=== PATIENT | male | born 1970 | race Caucasian/White ===

== ENCOUNTER 2022-04-20 15:00 | Outpatient (CLI) | payer OTHER, SELFPAY | END 2022-04-20 15:01 | disposition home or self-care (01) | LOC: SLEEP 04-21 15:53 | PROVIDERS: Family Provider Family Medicine; Visit Provider Family Medicine | DX: G47.33 Obstructive sleep apnea (adult) (pediatric) (principal) | CPT/HCPCS: G0399 ==

== ENCOUNTER → 2022-07-18 15:41 | Outpatient (BNVA) | payer OTHER, SELFPAY | PROVIDERS: Family Provider Family Medicine; PCP Family Medicine; Visit Provider Family Medicine | DX: R79.89 Other specified abnormal findings of blood chemistry (principal); Z51.81 Encounter for therapeutic drug level monitoring; Z79.890 Hormone replacement therapy | CPT/HCPCS: 80053; 83540; 84403; 86705; 86706; 86709; 86803; 87340 ==

== ENCOUNTER 2024-04-22 10:52 | Outpatient (CLI) | payer OTHER, SELFPAY ==
--- NOTE | 2024-04-22 10:56 | XR_ITS ---
WS: [id number] Chest 2 views, 04/22/2024 Clinical Data: right rib pain, 3 week cough Comparison: None. Findings: No nodules, masses or effusions are seen. There are mild bilateral patchy hilar opacities w hich could represent hilar pneumonia. The diaphragms are flattened. The heart is normal. The pulmonar y vascularity is not increased. No pneumonia or pneumothorax is seen. XR/XR chest 2V* [id number] Impression: 1. Minimal patchy bilateral hilar opacities which could indicate hilar pneumoni a. 2. Hyperinflation.
== END 2024-04-22 10:53 | disposition home or self-care (01) ==
LOC: RAD 10:53
PROVIDERS: Family Provider Family Medicine; PCP Family Medicine; Visit Provider Clinical Nurse Specialist Adult Health
DX: R07.81 Pleurodynia (principal); R05.8 Other specified cough
CPT/HCPCS: 71046

== ENCOUNTER 2024-05-16 09:43 | Outpatient (CLI) | payer OTHER, SELFPAY ==
--- NOTE | 2024-05-16 10:00 | CT_ITS ---
WS: [id number] CT chest wo con [id number] HISTORY: cough X 3 weeks, white phlegm, rib pain TECHNIQUE: Axial imaging performed through the thorax. Coronal and sagittal reformats are submitted. All CT scans at [facility] use at least one of these dose optimization techniques: automated exposure control; mA and/or kV adjustment per patient size (includes targeted exams where dose is mat ched to clinical indication); or iterative reconstruction. CONTRAST: None DLP: 468.57 mGy.cm COMPARISON: Chest radiograph 04/22/2024 Lungs and central airway: No pneumonia. No evidence for pneumonitis. There is no mass or lobar collap se. No endobronchial lesions. Pleura: Normal. No pleural effusion. Heart and pericardium: Normal size heart with no pericardial effusion. Mediastinum and collin: Small mediastinal and hilar lymph nodes. Vessels: Normal size aortic and pulmonary artery. No coronary artery calcifications. Chest wall and lower neck: No soft tissue masses. Upper abdomen: Small hiatal hernia. No adrenal mass. 1.7 cm low-attenuation mass in the superior RIGH T kidney is probably a cyst but incompletely included and evaluated on this exam. Osseous structures: No bone destruction. No osteoblastic or osteolytic bone disease. CT/CT chest wo con [id number] IMPRESSION: 1. No pneumonia. Lungs are clear. No adenopathy. 2. No pericardial or pleural effusions. 3. Incompletely visualized low-attenuation mass superior pole RIGHT kidney at 1.7 cm. This is probably a cyst. This can be further evaluated by ultrasound to confirm benign cyst.
== END 2024-05-16 09:44 | disposition home or self-care (01) ==
PROVIDERS: Family Provider Family Medicine; PCP Family Medicine; Visit Provider Clinical Nurse Specialist Adult Health
DX: R07.81 Pleurodynia (principal); R05.2 Subacute cough; D49.511 Neoplasm of unspecified behavior of right kidney; K44.9 Diaphragmatic hernia without obstruction or gangrene
CPT/HCPCS: 71250

== ENCOUNTER 2024-06-12 10:37 | Outpatient (CLI) | payer OTHER, SELFPAY ==
--- NOTE | 2024-06-12 10:45 | US_ITS ---
WS: [id number] RENAL ULTRASOUND HISTORY: right kidney mass COMPARISON: Chest CT 05/16/2024 TECHNIQUE: 2-D and color Doppler imaging of the kidney submitted. Right kidney: 10.7 cm x 5.1 cm x 4.4 cm. Cortex: 1.3 cm Normal size kidney. There is a cortical cyst in the mid to upper kidney measuring 2.2 x 1.9 x 2.0 cm. No solid mass or obstruction. Left kidney: 11.6 cm x 5.4 cm x 5.6 cm. Cortex: 1.5 cm Normal echogenicity with no hydronephrosis or mass. Aorta: Normal. Urinary Bladder: Normal distention. Mild prostate heterogeneity and enlargement. US/US renal BI* [id number] IMPRESSION: Previously described mass in the RIGHT kidney corresponds to a simple cyst. No solid mass. Cyst measures 2.2 x 1.9 x 2.0 cm.
== END 2024-06-12 10:38 | disposition home or self-care (01) ==
LOC: RAD 10:38
PROVIDERS: Family Provider Family Medicine; PCP Family Medicine; Visit Provider Clinical Nurse Specialist Adult Health
DX: N28.1 Cyst of kidney, acquired (principal); N28.89 Other specified disorders of kidney and ureter
CPT/HCPCS: 76770

== ENCOUNTER 2024-10-21 10:38 | Emergency (ER) | payer SELFPAY ==
[2024-10-21 10:42] VITALS: BP 135/70; PULSE 82; RESP 16; TEMP 36.7; O2SAT 97; BMI 29.5
--- NOTE | 2024-10-21 10:43 | ECG_ITS ---
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 Measurements Intervals [place] Rate: 89 P: 59 [place]: 136 QRS: 82 QRSD: 101 T: 47 QT: 330 QTc: 403 Interpretive Statements SINUS RHYTHM INCOMPLETE RIGHT BUNDLE BRANCH BLOCK [90+ ms QRS DURATION, TERMINAL R IN V1/V2, 40+ ms S IN I/aVL/V4/V5/V6] No previous ECG available for comparison Electronically Signed On 10-21-2024 17:04:33 WINTERIZER by Marilyn Winters M.D. [id number]
--- NOTE | 2024-10-21 11:19 | ED_ITS ---
HPI - Chest Pain 2 General: Chief Complaint: Chest Pain Stated Complaint: Cardiac issues Time Seen by Provider: 10/21/24 11:23 History of Present Illness: Patient is a 54-year-old male with history of hypertension, insomnia, ADHD, sleep apnea and anxiety. Patient states that he was vaping for a while. He states about 3 to 4 months ago he had an episode where when he would lay down he did have a tightness in the center of his chest and he feels like he was short of breath. He states that if he got up and moved around it went away but when he sat down again or laid back he can of felt this impending doom sensation. He states it lasted about 4 days and then went away. He never followed up. He did stop vaping around that time and then everything got better. He started vaping again about a month ago and started having the symptoms 4 days ago. He stopped vaping 2 days ago. He also states he has omeprazole which she took 1 of. He does not use it every day but just uses it whenever he has heartburn. He states the omeprazole did help. Patient takes Advil 3 times a day and states he has been doing that for 30 years. Patient states he does have some frequent heartburn. He also states that he has known sleep apnea and snores. His episodes during the night he usually wakes up from sleep having the sensations of gasping for air. Patient currently has no discomfort. He does have high anxiety over this issue. No lightheadedness, no nausea or vomiting. Associated symptoms: Deny abdominal pain or nausea Related Data Home Medications Medication Instructions Recorded Confirmed ibuprofen 200 mg tablet (Advil) 200 mg PO BID PRN Pain 10/21/24 10/21/24 tadalafil 5 mg tablet 8.5 mg PO DAILY PRN Sexual Activity 10/21/24 10/21/24 testosterone cypionate 200 mg/mL 250 mg SUBCUT .BYWEEKLY 10/21/24 10/21/24 intramuscular syringe Previous Rx's Medication Instructions Recorded Auto Titrating C-pap #1 ea 06/09/22 omeprazole 40 mg capsule,delayed 40 mg PO DAILY #90 caps 07/28/23 release hydrochlorothiazide 25 mg tablet 25 mg PO DAILY #30 tabs 12/13/23 dextroamphetamine-amphetamine ER 10 mg PO DAILY 1 month #30 caps 10/16/24 10 mg 24hr capsule,extend release (Adderall XR) clonazepam 1 mg tablet (Klonopin) 1 mg PO TID PRN Anxiety #12 tabs 10/21/24 sucralfate 1 gram tablet (Carafate) 1 g PO Q6H 2 weeks #56 tabs 10/21/24 Allergies Allergy/AdvReac Type Severity Reaction Status Date / Time duloxetine [From Cymbalta] Allergy Intermediate RASH Verified 10/21/24 10:52 gabapentin AdvReac ADR-Muscle Verified 10/21/24 10:52 Pain trazodone AdvReac ADR-Muscle Verified 10/21/24 10:52 Pain Review of Systems 2 ENMT: Denies: throat pain or nasal congestion Card: Denies: lightheadedness Resp: Denies: wheezing GI: Denies: abdominal pain or nausea : Denies: difficulty urinating or dysuria Musc: Denies: neck pain or extremity pain Neuro: Denies: weakness in extremities or sensory changes ENMT: Denies: throat pain or nasal congestion Card: Denies: lightheadedness Resp: Denies: wheezing GI: Denies: abdominal pain or nausea : Denies: difficulty urinating or dysuria Musc: Denies: neck pain or extremity pain Neuro: Denies: weakness in extremities or sensory changes PFSH ED 2 PFSH: Medical History Anxiety Hypertension Insomnia ADD (attention deficit disorder) Hypotestosteronemia Obstructive sleep apnea Social History Smoking and tobacco/nicotine status: unknown if used tobacco/nicotine Physical Exam 2 Const: COMMON NORMALS: no acute distress, patient oriented x3 and alert G ENERAL APPEARANCE: cooperative HENMT: COMMON NORMALS: normocephalic and atraumatic HEAD & SCALP: n ormocephalic and atraumatic Eye: COMMON NORMALS: Equal, round and reactive pupils present and EOMs intact bilaterally PUPIL: Yes Equal, round and reactive pupils present Neck/C-Spine: COMMON NORMALS: full ROM and supple Chest: COMMONS NORMALS: normal inspection of the chest Resp: COMMON NORMALS: normal respiratory effort and clear to auscultation bilaterally AUSCULTATION: clear to auscultation bilaterally Cardio: COMMON NORMALS: regular rate and regular rhythm RATE: regular rate RHYTHM: regular rhythm GI: COMMON NORMALS: Normal to inspection, nondistended, normoactive bowel sounds present and non-tender : COMMON NORMALS: Yes no CVA tenderness BLADDER/KIDNEY EXAM: Yes no CVA tenderness Back/Pelvis: COMMON NORMALS: no CVA tenderness and thoracic and lumbar spine normal to inspection Extremity: COMMON NORMALS: normal to inspection, full ROM and no pedal edema Neuro: COMMON NORMALS: patient oriented x3 and no focal motor deficits S ENSORIUM/ORIENTATION: Yes alert Psych: COMMON NORMALS: cooperative Skin: COMMON NORMALS: no rashes or lesions noted GENERAL SKIN EXAM: no rashes or lesions noted Course 2 Vital Signs: Vital signs: Vital Signs Temperature 98.1 F 10/21/24 10:42 Pulse Rate 66 10/21/24 12:28 Respiratory Rate 16 10/21/24 10:42 Blood Pressure 147/99 10/21/24 12:28 Pulse Oximetry 98 10/21/24 12:28 Oxygen Delivery Me thod Room Air 10/21/24 12:28 MDM - Chest Pain Medical Decision Making Patient workup negative. Initial troponin was 17 and 2-hour repeat was 11. Patient symptoms seem most consistent with anxiety. He states while he is up working and doing things in his mind does not thinking about his issues he feels fine and has no issues. He states once he sits down he starts thinking about having problems and then he starts feeling extremely anxious and has to get up and move around. He has symptoms mostly when he lays down at night. He wakes up gasping which sounds like sleep apnea which he has documented as having. He has not used CPAP in a long time. He also has these attacks where he breathes fast and his heart beats fast and he is tingling in his hands again consistent with anxiety. He states he is not sleeping at night but has documented insomnia. Do not see anything acute. Have advised to use omeprazole once daily instead of just as needed and will put him on Carafate. Will give him small course of Klonopin to use for this extreme anxiety. He does have appointment with his primary doctor in 3 days. Lab Data 10/21/24 11:44 10/21/24 11:44 Radiology Impressions Chest X-Ray 10/21/24 11:26 IMPRESSION: No evidence for an acute cardiopulmonary process. Laboratory Results WBC 8.57 10^3/uL (3.29-11.43) 10/21/24 11:44 RBC 5.47 10^6/uL (3.85-5.65) 10/21/24 11:44 Hgb 17.20 g/dL (11.27-16.99) H 10/21/24 11:44 Hct 49.5 % (37-53) 10/21/24 11:44 MCV 90.5 fl (82-101) 10/21/24 11:44 MCH 31.4 pg (27-33) 10/21/24 11:44 MCHC 34.7 g/dL (30-55) 10/21/24 11:44 RDW 12.4 % (12.1-15.1) 10/21/24 11:44 Plt Count 267 10^3/cmm (157-399) 10/21/24 11:44 MPV 9.3 fL (7.4-10.4) 10/21/24 11:44 Neut % (Auto) 78.0 % 10/21/24 11:44 Lymph % (Auto) 11.6 % 10/21/24 11:44 [place] % (Auto) 6.8 % 10/21/24 11:44 Eos % (Auto) 2.7 % 10/21/24 11:44 Baso % (Auto) 0.7 % 10/21/24 11:44 Neut # (Auto) 6.69 10^3/uL (1.8-7.7) 10/21/24 11:44 Lymph # (Auto) 1.0 10^3/uL (0.8-4.8) 10/21/24 11:44 [place] # (Auto) 0.6 10^3/uL (0.2-0.9) 10/21/24 11:44 Eos # (Auto) 0.2 10^3/uL (0.0-0.8) 10/21/24 11:44 Baso # (Auto) 0.1 10^3/uL (0.0-0.1) 10/21/24 11:44 Nucleated RBC % (auto) 0 % 10/21/24 11:44 Nucleated RBCs # 0.0 /100WBC 10/21/24 11:44 Sodium 135 mmol/L (136-145) L 10/21/24 11:44 Potassium 3.5 mmol/L (3.5-5.1) 10/21/24 11:44 Chloride 97 mmol/L (98-107) L 10/21/24 11:44 Carbon Dioxide 29 mmol/L (22-29) 10/21/24 11:44 Anion Gap 12.5 (5-19) 10/21/24 11:44 BUN 13 mg/dL (6-20) 10/21/24 11:44 Creatinine 1.0 mg/dL (0.7-1.2) 10/21/24 11:44 GFR Calculation 78.2 mL/min (90-130) L 10/21/24 11:44 Glucose 115 mg/dL (65-115) 10/21/24 11:44 Calculated Osmolality 281 mOsm/kg (285-295) L 10/21/24 11:44 Calcium 9.4 mg/dL (8.5-10.5) 10/21/24 11:44 Total Bilirubin 0.5 mg/dL (0.15-1.2) 10/21/24 11:44 AST 36 U/L (0-40) 10/21/24 11:44 ALT 34 U/L (0-41) 10/21/24 11:44 Alkaline Phosphatase 65 U/L (40-130) 10/21/24 11:44 Troponin T Baseline 17 ng/L (0-15) H 10/21/24 11:44 Troponin T 120 Minute 11.51 ng/L (0-15) 10/21/24 14:10 Delta Troponin T -5.49 ABS# (0-10) L 10/21/24 14:10 Total Protein 7.0 g/dL (6.6-8.7) 10/21/24 11:44 Albumin 4.4 g/dL (3.5-5.2) 10/21/24 11:44 Globulin 2.6 g/dL (1.3-4.6) 10/21/24 11:44 All radiology interpretation(s) finalized by discharge EKG Data EKG 1: Interpretation: Normal EKG, no ST elevations or depressions, no ectopic beats. Normal intervals Discharge Plan Discharge Patient Disposition: Home Clinical Impression: Peptic ulcer, Obstructive sleep apnea, Anxiety Condition: Stable Prescriptions: New clonazepam [Klonopin] 1 mg tablet 1 mg PO TID PRN (Reason: Anxiety) Qty: 12 0RF sucralfate [Carafate] 1 gram tablet 1 g PO Q6H 14 Days Qty: 56 0RF No Action hydrochlorothiazide 25 mg tablet 25 mg PO DAILY Qty: 30 11RF (DME) Auto Titrating C-pap See Rx Instructions .Route .MEDSUPPLY Qty: 1 1RF Rx Instructions: setting of 6-14. mask and supplies as needed omeprazole 40 mg capsule,delayed release(DR/EC) 40 mg PO DAILY Qty: 90 11RF dextroamphetamine-amphetamine [Adderall XR] 10 mg capsule,extended release 24hr 10 mg PO DAILY 30 Days Qty: 30 0RF ibuprofen [Advil] 200 mg Tablet 200 mg PO BID PRN (Reason: Pain) tadalafil 5 mg Tablet 8.5 mg PO DAILY PRN (Reason: Sexual Activity) Rx Instructions: administer approximately 30min before sexual activity; do not use more than 1 dose per 24hrs testosterone cypionate 200 mg/mL Syringe 250 mg SUBCUT .BYWEEKLY Discharge Orders: Discharge ED (Routine); Ordered 10/21/24 Ordered By: Bill Wheeler Referrals: Kiel Alvares MD [Primary Care Provider] - Discharge Diet: Usual diet Discharge Activity: Resume usual activity Patient Instructions: Diet for Stomach Ulcers and Gastritis (ED), Esophagitis (ED), Pain Management Activity Restrictions/Additional Instructions: Follow-up with your primary care physician as previously scheduled for October 24. Take all medications as prescribed. Make sure you are taking your omeprazole once daily until that time. Coding Level of Care Code ED Topographical Field Assistant for Soraya Jessica
--- NOTE | 2024-10-21 11:26 | XRR_ITS ---
PROCEDURE INFORMATION: Exam: XR Chest Exam date and time: 10/21/2024 11:31 AM Age: 54 years old Clinical indication: Pain; Angina pectoris; Additional info: Chest pain TECHNIQUE: Imaging protocol: Radiologic exam of the chest. Views: 1 view. COMPARISON: CT chest con [id number] 05/16/2024 10:07 AM FINDINGS: Tubes, catheters and devices: None. Lungs: The lungs appear clear. Pleural spaces: No pleural effusion. No pneumothorax. Heart/Mediastinum: Mediastinum and collin appear unremarkable. Bones/joints: No acute bony abnormality identified. XR/XR chest 1V portable [id number] IMPRESSION: No evidence for an acute cardiopulmonary process.
[2024-10-21 11:54] LABS: Basophils # 0.1 10^3/uL (0.0-0.1); Basophils % 0.7 %; Eosinophils # 0.2 10^3/uL (0.0-0.8); Eosinophils % 2.7 %; Hematocrit 49.5 % (37-53); Lymphocytes % 11.6 %; Mean Corpuscular HGB Conc 34.7 g/dL (30-55); Mean Corpuscular Hemoglobin 31.4 pg (27-33); Mean Corpuscular Volume 90.5 fl (82-101); Mean Platelet Volume 9.3 fL (7.4-10.4); Monocytes # 0.6 10^3/uL (0.2-0.9); Monocytes % 6.8 %; Neutrophils # 6.69 10^3/uL (1.8-7.7); Nucleated Red Blood Cells % 0 %; Platelet Count 267 10^3/cmm (157-399); Red Blood Count 5.47 10^6/uL (3.85-5.65); Red Cell Distribution Width 12.4 % (12.1-15.1); White Blood Count 8.57 10^3/uL (3.29-11.43)
[2024-10-21 12:13] LABS: Alanine Aminotransferase 34 U/L (0-41); Albumin Level 4.4 g/dL (3.5-5.2); Alkaline Phosphatase 65 U/L (40-130); Anion Gap 12.5 (5-19); Aspartate Amino Transferase 36 U/L (0-40); Blood Urea Nitrogen 13 mg/dL (6-20); Calcium 9.4 mg/dL (8.5-10.5); Carbon Dioxide 29 mmol/L (22-29); Chloride 97 mmol/L (98-107); Creatinine Clr Calc Pharmacy 95.1045; Globulin 2.6 g/dL (1.3-4.6); Glomerular Filtration Rate 78.2 mL/min (90-130); Glucose 115 mg/dL (65-115); Osmolality Calculated 281 mOsm/kg (285-295); Potassium 3.5 mmol/L (3.5-5.1); Sodium 135 mmol/L (136-145); Total Bilirubin 0.5 mg/dL (0.15-1.2)
[2024-10-21 12:14] LABS: Troponin(5th) Baseline 17 ng/L (0-15)
[2024-10-21 12:28] VITALS: BP 147/99; PULSE 66; O2SAT 98
--- NOTE | 2024-10-21 13:24 | ECG_ITS ---
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 Measurements Intervals [place] Rate: 63 P: 43 CO: 152 QRS: 58 QRSD: 106 T: 25 QT: 370 QTc: 381 Interpretive Statements SINUS RHYTHM INCOMPLETE RIGHT BUNDLE BRANCH BLOCK [90+ ms QRS DURATION, TERMINAL R IN V1/V2, 40+ ms S IN I/aVL/V4/V5/V6] Compared to ECG 10/21/2024 10:43:44 No significant changes Electronically Signed On 10-21-2024 17:16:37 TUB OPERATOR by Marilyn Winters M.D. [id number]
[2024-10-21 14:31] LABS: Troponin 5 2HR 11.51 ng/L (0-15)
[2024-10-21 14:32] LABS: Troponin 5 2HR Delta -5.49 ABS# (0-10)
--- NOTE | 2024-10-21 15:03 | ED_ITS ---
<Statement entered by Bill Wheeler MD - 10/21/24 16:54> The system somehow created a second note that it wants me to complete. I have a note that is signed and fully complete in the system dated 10/21/2024 with a time of 11:19 AM creation. Please refer to that note for information regarding visit. HPI - Chest Pain 2 General: Chief Complaint: Chest Pain Stated Complaint: Cardiac issues Time Seen by Provider: 10/21/24 11:23 History of Present Illness: This document was created by the system and is a duplicate. Please disregard Related Data Home Medications Medication Instructions Recorded Confirmed ibuprofen 200 mg tablet (Advil) 200 mg PO BID PRN Pain 10/21/24 10/21/24 tadalafil 5 mg tablet 8.5 mg PO DAILY PRN Sexual Activity 10/21/24 10/21/24 testosterone cypionate 200 mg/mL 250 mg SUBCUT .BYWEEKLY 10/21/24 10/21/24 intramuscular syringe Previous Rx's Medication Instructions Recorded Auto Titrating C-pap #1 ea 06/09/22 omeprazole 40 mg capsule,delayed 40 mg PO DAILY #90 caps 07/28/23 release hydrochlorothiazide 25 mg tablet 25 mg PO DAILY #30 tabs 12/13/23 dextroamphetamine-amphetamine ER 10 mg PO DAILY 1 month #30 caps 10/16/24 10 mg 24hr capsule,extend release (Adderall XR) clonazepam 1 mg tablet (Klonopin) 1 mg PO TID PRN Anxiety #12 tabs 10/21/24 sucralfate 1 gram tablet (Carafate) 1 g PO Q6H 2 weeks #56 tabs 10/21/24 Allergies Allergy/AdvReac Type Severity Reaction Status Date / Time duloxetine [From Cymbalta] Allergy Intermediate RASH Verified 10/21/24 10:52 gabapentin AdvReac ADR-Muscle Verified 10/21/24 10:52 Pain trazodone AdvReac ADR-Muscle Verified 10/21/24 10:52 Pain PFSH ED 2 PFSH: Medical History Anxiety Hypertension Insomnia ADD (attention deficit disorder) Hypotestosteronemia Obstructive sleep apnea Social History Smoking and tobacco/nicotine status: unknown if used tobacco/nicotine Course 2 Vital Signs: Vital signs: Vital Signs Temperature 98.1 F 10/21/24 10:42 Pulse Rate 70 10/21/24 15:44 Respiratory Rate 16 10/21/24 10:42 Blood Pressure 138/91 10/21/24 15:44 Pulse Oximetry 99 10/21/24 15:44 Oxygen Delivery Me thod Room Air 10/21/24 12:28 MDM - Chest Pain Medical Decision Making Duplicate document created by system and correctly. Please disregard Lab Data 10/21/24 11:44 10/21/24 11:44 Radiology Impressions Chest X-Ray 10/21/24 11:26 IMPRESSION: No evidence for an acute cardiopulmonary process. Laboratory Results WBC 8.57 10^3/uL (3.29-11.43) 10/21/24 11:44 RBC 5.47 10^6/uL (3.85-5.65) 10/21/24 11:44 Hgb 17.20 g/dL (11.27-16.99) H 10/21/24 11:44 Hct 49.5 % (37-53) 10/21/24 11:44 MCV 90.5 fl (82-101) 10/21/24 11:44 MCH 31.4 pg (27-33) 10/21/24 11:44 MCHC 34.7 g/dL (30-55) 10/21/24 11:44 RDW 12.4 % (12.1-15.1) 10/21/24 11:44 Plt Count 267 10^3/cmm (157-399) 10/21/24 11:44 MPV 9.3 fL (7.4-10.4) 10/21/24 11:44 Neut % (Auto) 78.0 % 10/21/24 11:44 Lymph % (Auto) 11.6 % 10/21/24 11:44 [place] % (Auto) 6.8 % 10/21/24 11:44 Eos % (Auto) 2.7 % 10/21/24 11:44 Baso % (Auto) 0.7 % 10/21/24 11:44 Neut # (Auto) 6.69 10^3/uL (1.8-7.7) 10/21/24 11:44 Lymph # (Auto) 1.0 10^3/uL (0.8-4.8) 10/21/24 11:44 [place] # (Auto) 0.6 10^3/uL (0.2-0.9) 10/21/24 11:44 Eos # (Auto) 0.2 10^3/uL (0.0-0.8) 10/21/24 11:44 Baso # (Auto) 0.1 10^3/uL (0.0-0.1) 10/21/24 11:44 Nucleated RBC % (auto) 0 % 10/21/24 11:44 Nucleated RBCs # 0.0 /100WBC 10/21/24 11:44 Sodium 135 mmol/L (136-145) L 10/21/24 11:44 Potassium 3.5 mmol/L (3.5-5.1) 10/21/24 11:44 Chloride 97 mmol/L (98-107) L 10/21/24 11:44 Carbon Dioxide 29 mmol/L (22-29) 10/21/24 11:44 Anion Gap 12.5 (5-19) 10/21/24 11:44 BUN 13 mg/dL (6-20) 10/21/24 11:44 Creatinine 1.0 mg/dL (0.7-1.2) 10/21/24 11:44 GFR Calculation 78.2 mL/min (90-130) L 10/21/24 11:44 Glucose 115 mg/dL (65-115) 10/21/24 11:44 Calculated Osmolality 281 mOsm/kg (285-295) L 10/21/24 11:44 Calcium 9.4 mg/dL (8.5-10.5) 10/21/24 11:44 Total Bilirubin 0.5 mg/dL (0.15-1.2) 10/21/24 11:44 AST 36 U/L (0-40) 10/21/24 11:44 ALT 34 U/L (0-41) 10/21/24 11:44 Alkaline Phosphatase 65 U/L (40-130) 10/21/24 11:44 Troponin T Baseline 17 ng/L (0-15) H 10/21/24 11:44 Troponin T 120 Minute 11.51 ng/L (0-15) 10/21/24 14:10 Delta Troponin T -5.49 ABS# (0-10) L 10/21/24 14:10 Total Protein 7.0 g/dL (6.6-8.7) 10/21/24 11:44 Albumin 4.4 g/dL (3.5-5.2) 10/21/24 11:44 Globulin 2.6 g/dL (1.3-4.6) 10/21/24 11:44 No radiology studies performed this visit Discharge Plan Discharge Patient Disposition: Home Clinical Impression: Peptic ulcer, Obstructive sleep apnea, Anxiety Condition: Stable Prescriptions: New clonazepam [Klonopin] 1 mg tablet 1 mg PO TID PRN (Reason: Anxiety) Qty: 12 0RF sucralfate [Carafate] 1 gram tablet 1 g PO Q6H 14 Days Qty: 56 0RF No Action hydrochlorothiazide 25 mg tablet 25 mg PO DAILY Qty: 30 11RF (DME) Auto Titrating C-pap See Rx Instructions .Route .MEDSUPPLY Qty: 1 1RF Rx Instructions: setting of 6-14. mask and supplies as needed omeprazole 40 mg capsule,delayed release(DR/EC) 40 mg PO DAILY Qty: 90 11RF dextroamphetamine-amphetamine [Adderall XR] 10 mg capsule,extended release 24hr 10 mg PO DAILY 30 Days Qty: 30 0RF ibuprofen [Advil] 200 mg Tablet 200 mg PO BID PRN (Reason: Pain) tadalafil 5 mg Tablet 8.5 mg PO DAILY PRN (Reason: Sexual Activity) Rx Instructions: administer approximately 30min before sexual activity; do not use more than 1 dose per 24hrs testosterone cypionate 200 mg/mL Syringe 250 mg SUBCUT .BYWEEKLY Discharge Orders: Discharge ED (Routine); Ordered 10/21/24 Ordered By: Bill Wheeler Referrals: Kiel Alvares MD [Primary Care Provider] - Discharge Diet: Usual diet Discharge Activity: Resume usual activity Patient Instructions: Diet for Stomach Ulcers and Gastritis (ED), Esophagitis (ED), Pain Management Activity Restrictions/Additional Instructions: Follow-up with your primary care physician as previously scheduled for October 24. Take all medications as prescribed. Make sure you are taking your omeprazole once daily until that time. Coding Level of Care Code ED Russian Teacher for Soraya Jessica
[2024-10-21 15:44] VITALS: BP 138/91; PULSE 70; O2SAT 99
== END 2024-10-21 15:46 | disposition home or self-care (01) ==
PROVIDERS: Physician Assistant; Emergency Provider Emergency Medicine; Family Provider Family Medicine; PCP Family Medicine
DX: K27.9 Peptic ulcer, site unspecified, unspecified as acute or chronic, without hemorrhage or perforation (principal); G47.33 Obstructive sleep apnea (adult) (pediatric); F41.9 Anxiety disorder, unspecified
CPT/HCPCS: 12345; 36415; 71045; 80053; 84484; 85025; 93005; 99285

== ENCOUNTER 2025-05-11 20:16 | Emergency (ER) | payer BC, SELFPAY ==
[2025-05-11 20:36] VITALS: BP 151/93; PULSE 101; RESP 18; TEMP 36.9; O2SAT 97; BMI 29.5
--- NOTE | 2025-05-11 21:16 | ED_ITS ---
HPI - Skin/Abscess/Foreign Bdy General: Chief complaint: Skin/Abscess/Foreign Body Stated complaint: Rash Time Seen by Provider: 05/11/25 20:47 History of Present Illness: Patient is a 54-year-old gentleman presented to ED due to rash, itching, scratchy throat, feeling as if his throat was closing. He did take 50 mg of Benadryl just prior to arrival. He did have red meat approximately 1 hour prior to onset of symptoms. Patient states this is the third time he has had a breakout however he has not had one with a scratchy throat, difficulty breathing, and association with lip swelling. He did have a tick bite approximately 2 years ago. He is unaware if he has a tickborne illness or alpha gal. No other changes in his life or medication changes. Associated symptoms: Deny chills, fever(s) or nausea Related Data Home Medications ?Medication ?Instructions ?Recorded ?Confirmed ibuprofen 200 mg tablet (Advil) 200 mg PO BID PRN Pain 10/21/24 11/28/24 tadalafil 5 mg tablet 8.5 mg PO DAILY PRN Sexual A ctivity 10/21/24 11/28/24 testosterone cypionate 200 mg/mL 250 mg SUBCUT .BYWEEK LY 10/21/24 11/28/24 intramuscular syringe Previous Rx's ?Medication ?Instructions ?Recorded Auto Titrating C-pap #1 ea 06/09/22 omeprazole 40 mg capsule,delayed 40 mg PO DAILY #90 ca ps 07/28/23 release hydrochlorothiazide 25 mg tablet 25 mg PO DAILY #90 ta bs 11/28/24 dextroamphetamine-amphetamine ER 10 mg PO DAILY 1 cassy h #30 caps 04/11/25 10 mg 24hr capsule,extend release (Adderall XR) clonazepam 1 mg tablet (Klonopin) 1 mg PO DAILY PRN An xiety #30 tabs 04/28/25 epinephrine 0.3 mg/0.3 mL 0.3 mg (0.3 mL) IM Q10M PRN 05/11/25 injection, auto-injector (EpiPen anaphylaxis #2 ea 2-Alexey) famotidine 40 mg tablet 40 mg PO BID #20 tabs levocetirizine 5 mg tablet 5 mg PO DAILY 10 days #10 t abs 05/11/25 methylprednisolone 4 mg tablets in See Rx Instructions PO .COMPLEX 05/11/25 a dose pack (Medrol (Alexey)) #21 ea Allergies Allergy/AdvReac Type Severity Reaction Status Date / Time duloxetine (From Cymbalta) Allergy Intermediate RASH Verified 10/21/24 10:52 gabapentin AdvReac ADR-Muscle Verified 10/21/24 10:52 Pain trazodone AdvReac ADR-Muscle Verified 10/21/24 10:52 Pain Review of Systems Const: Denies: fever(s) or chills ENMT: Denies: throat pain or nasal congestion Card: Denies: lightheadedness Resp: Denies: wheezing GI: Denies: abdominal pain or nausea : Denies: difficulty urinating or dysuria Musc: Denies: neck pain or extremity pain Neuro: Denies: weakness in extremities or sensory changes Psych: Denies: anxiety or depression PFSH ED PFSH: Medical History (Updated 05/11/25 @ 21:46 by NILSON Chopra) Anxiety Hypertension Insomnia ADD (attention deficit disorder) Hypotestosteronemia Obstructive sleep apnea Social History Smoking and tobacco/nicotine status: unknown if used tobacco/nicotine Physical Exam Const: COMMON NORMALS: no acute distress, average body habitus and patient oriented x3 HENMT: COMMON NORMALS: normocephalic and atraumatic HEAD & SCALP: normocephalic and atraumatic Lymph: LYMPHATIC: no lymphadenopathy noted Chest: COMMONS NORMALS: normal inspection of the chest and normal palpation of entire chest wall Cardio: COMMON NORMALS: regular rate and regular rhythm RATE: regular rate RHYTHM: regular rhythm GI: COMMON NORMALS: Normal to inspection, nondistended, normoactive bowel sounds present, Soft to palpation and non-tender PALPATION: Yes Soft to pa lpation : COMMON NORMALS: Yes no CVA tenderness BLADDER/KIDNEY EXAM: Yes no CVA tenderness Back/Pelvis: COMMON NORMALS: no CVA tenderness Extremity: COMMON NORMALS: normal to inspection, full ROM and capillary refill normal Neuro: COMMON NORMALS: patient oriented x3 Psych: COMMON NORMALS: mental status grossly normal and Normal thought process present THOUGHT PROCESS: Normal thought process present Skin: COMMON NORMALS: no rashes or lesions noted and no wounds GENERAL SKIN EXAM: no rashes or lesions noted Course Vital Signs: Vital signs: Vital Signs Temperature 98.5 F 05/11/25 20:36 Pulse Rate 101 H 05/11/25 20:36 Respiratory Rate 18 05/11/25 20:36 Blood Pressure 151/93 05/11/25 20:36 Pulse Oximetry 97 05/11/25 20:36 MDM - Skin/Abscess/Foreign Bdy Medicial Decision Making Patient is a 54-year-old gentleman with allergic reaction to suspected meat. His skin is associated with wheals, macular papular areas consistent with allergic behavior. I have given him dexamethasone, Pepcid, Claritin for long- acting, and the patient is taking Benadryl at home. I have sent EpiPen's to the pharmacy, and advised patient of the above. He will follow-up with his primary care physician, and call tomorrow for an appointment in order to have further testing and evaluation. All radiology interpretation(s) finalized by discharge Discharge Plan Discharge Patient Disposition: Home Clinical Impression: Allergic reaction Qualifiers: Encounter type: initial encounter Qualified Code(s): T78.40XA - Allergy, unspecified, initial encounter Condition: Stable Prescriptions: New methylprednisolone [Medrol (Alexey)] 4 mg tablets,dose pack See Rx Instructions .ROUTE .COMPLEX Qty: 21 0RF Rx Instructions: for 6 days famotidine 40 mg tablet 40 mg PO BID Qty: 20 0RF levocetirizine 5 mg tablet 5 mg PO DAILY 10 Days Qty: 10 0RF epinephrine [EpiPen 2-Alexey] 0.3 mg/0.3 mL auto-injector 0.3 mg IM Q10M PRN (Reason: anaphylaxis) Qty: 2 0RF Rx Instructions: for 2 doses No Action hydrochlorothiazide 25 mg tablet 25 mg PO DAILY Qty: 90 11RF (DME) Auto Titrating C-pap See Rx Instructions .Route .MEDSUPPLY Qty: 1 1RF Rx Instructions: setting of 6-14. mask and supplies as needed omeprazole 40 mg capsule,delayed release(DR/EC) 40 mg PO DAILY Qty: 90 11RF dextroamphetamine-amphetamine [Adderall XR] 10 mg capsule,extended release 24hr 10 mg PO DAILY 30 Days Qty: 30 0RF clonazepam [Klonopin] 1 mg tablet 1 mg PO DAILY PRN (Reason: Anxiety) Qty: 30 5RF ibuprofen [Advil] 200 mg Tablet 200 mg PO BID PRN (Reason: Pain) tadalafil 5 mg Tablet 8.5 mg PO DAILY PRN (Reason: Sexual Activity) Rx Instructions: administer approximately 30min before sexual activity; do not use more than 1 dose per 24hrs testosterone cypionate 200 mg/mL Syringe 250 mg SUBCUT .BYWEEKLY Discharge Orders: Discharge ED (Routine); Ordered 05/11/25 Ordered By: Catarina Gann Referrals: Kiel Alvares MD [Primary Care Provider, [facility]] Discharge Diet: As Directed Discharge Activity: Resume usual activity Patient Instructions: Alpha-gal Syndrome (DC), Patient Portal & Yoel Instructions Activity Restrictions/Additional Instructions: Utilize an alpha gal friendly diet until you can follow-up with your doctor. Call your doctor tomorrow for follow-up appointment. Medications are at the pharmacy to help with the inflammatory response from your allergic reaction?that still needs to be discovered. Take an antihistamine, long-acting daily, as well as Pepcid twice daily that is at the pharmacy, and epinephrine pen if you need it. Medrol Dosepak is to continue for the your anti-inflammatory response. Return to the ED for anaphylaxis or allergic reaction. Print Language: Serbian Coding Level of Care Code ED Unit Support Representative for Soraya Jessica
== END 2025-05-11 21:54 | disposition home or self-care (01) ==
PROVIDERS: Emergency Provider Physician Assistant; PCP Family Medicine
DX: T78.40XA Allergy, unspecified, initial encounter (principal); I10 Essential (primary) hypertension; X58.XXXA Exposure to other specified factors, initial encounter
CPT/HCPCS: 96372; 99284; J1100; J9999

== ENCOUNTER → 2025-05-14 11:18 | Outpatient (BNVA) | payer BC, SELFPAY | PROVIDERS: PCP Family Medicine; Visit Provider Family Medicine | DX: R51.9 Headache, unspecified (principal) | CPT/HCPCS: 86003; 86008 ==

== ENCOUNTER 2025-07-29 09:59 | Outpatient (CLI) | payer BC, SELFPAY ==
--- NOTE | 2025-07-29 10:05 | XR_ITS ---
WS: [id number] XR lumbar spine 2-3V* [id number] REASON FOR EXAM: chronic back pain FINDINGS: Minimal rotatory levoscoliosis. Normal lordosis. No significant compression deformity or focal lesion of the vertebrae. Mild osteophytosis L1-L5. Mild narrowing of the disc space at L1-L2 and L3-S1. No spondylolysis. No significant spondylolisthesis. XR/XR lumbar spine 2-3V* [id number] IMPRESSION: Mild lumbar degenerative spondylosis as above.
== END 2025-07-29 10:00 | disposition home or self-care (01) ==
LOC: RAD 10:01
PROVIDERS: PCP Family Medicine; Visit Provider Family Medicine
DX: M51.16 Intervertebral disc disorders with radiculopathy, lumbar region (principal); M51.17 Intervertebral disc disorders with radiculopathy, lumbosacral region; M25.78 Osteophyte, vertebrae
CPT/HCPCS: 72100

== ENCOUNTER 2025-08-21 08:01 | Outpatient (CLI) | payer BC, SELFPAY ==
--- NOTE | 2025-08-21 08:00 | MR_ITS ---
WS: [id number] MRI LUMBAR SPINE NONCONTRAST HISTORY: sciatica, bilateral leg numbness and pain for 7 years. COMPARISON: None available. TECHNIQUE: Sagittal and axial multisequence imaging is submitted. Straightening of the normal cervical lordosis. Slight retrolisthesis of C5 with a small C5-6 disc protrusion contacting the ventral cervical cord. Additional small disc osteophyte at T11-12 slightly contacting the ventral thoracic cord. Normal lumbar alignment with no compression fractures or marrow edema. Conus terminates normally at L1-2 disc level. L1-L2: Moderate annular disc bulging encroaching upon the ventral thecal sac and subarticular recesses. Mild facet and ligamentum flavum hypertrophy. Mild central, subarticular recess and foraminal stenosis. L2-L3: Mild annular disc bulging with mild facet and ligamentum flavum hypertrophy. Shallow bilateral foraminal disc protrusions resulting in mild to moderate stenosis. L3-L4: Diffuse disc bulging with a central disc protrusion. Moderate ligamentum flavum and facet arthritis. Bilateral foraminal disc protrusions. Mild to moderate central with moderate subarticular recess stenosis and severe bilateral foraminal stenosis. Complete effacement of fat in the foramina. L4-L5: Annular disc bulge with a broad-based central disc protrusion extending into the subarticular recesses. Disc contacts the traversing L5 nerve roots. Moderate ligamentum flavum and facet arthritis. Bilateral foraminal disc protrusions with severe stenosis, greatest on the LEFT. L5-S1: Disc bulging with facet arthritis. Mild bilateral foraminal stenosis. RIGHT renal cyst. MR/MR lumbar spine wo con* [id number] IMPRESSION: 1. No acute lumbar spine fracture. 2. Bilateral foraminal disc protrusions and facet arthritis resulting in sever e foraminal stenosis at L4-5, greatest on the LEFT. Broad-based disc protrusion extends into the subarticular recesses contacting the traversing L5 nerve root s also. 3. Mild to moderate central and moderate subarticular recess stenosis at L3-4. Severe bilateral foraminal stenosis. Foraminal disc protrusions and facet join t arthritis. 4. Mild to moderate foraminal stenosis at L2-3. 5. Mild central, subarticular recess and foraminal stenosis at L1-2. 6. Small disc osteophyte at T11-12 contacting the ventral thoracic cord. 7. Mild foraminal stenosis at L5-S1.
== END 2025-08-21 08:02 | disposition home or self-care (01) ==
PROVIDERS: PCP Family Medicine; Visit Provider Family Medicine
DX: M54.9 Dorsalgia, unspecified (principal); G89.29 Other chronic pain; M51.16 Intervertebral disc disorders with radiculopathy, lumbar region; M51.26 Other intervertebral disc displacement, lumbar region; M48.061 Spinal stenosis, lumbar region without neurogenic claudication; M47.816 Spondylosis without myelopathy or radiculopathy, lumbar region
CPT/HCPCS: 72148

== ENCOUNTER → 2025-09-15 15:58 | Outpatient (BNVA) | payer BC, SELFPAY | PROVIDERS: PCP Family Medicine; Visit Provider Family Medicine | DX: Z51.81 Encounter for therapeutic drug level monitoring (principal); Z79.890 Hormone replacement therapy; R30.0 Dysuria | CPT/HCPCS: 81000; 84153; 87077; 87086; 87184; 87491; 87591 ==